=== PATIENT | male | born 1965 | race Caucasian/White ===

== ENCOUNTER 2021-03-27 10:54 | Emergency (ER) | payer OTHER, SELFPAY ==
[2021-03-27] VITALS (49 sets, daily range): BP systolic 91–131; BP diastolic 47–94; PULSE 64–113; RESP 5–24; TEMP 36; O2SAT 84–97
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
[2021-03-27] MEDS: Omnipaque 350 MG/ML 100 ML BTL IJ (11:12)
[2021-03-27] MEDS: Normal Saline Flush 10 ML SYR IVP (11:12)
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
[2021-03-27] MEDS: HYDROmorphone 2 MG/ML VIAL 1 MG IVP ×3 (11:20→15:57)
[2021-03-27 11:48] LABS: Absolute Basophil Count 0.05 10^3/uL (0.0-0.2); Absolute Eosinophil Count 0.14 10^3/uL (0.0-0.7); Absolute Lymphocyte Count 2.28 10^3/uL (1.2-3.4); Absolute Monocyte Count 0.88 10^3/uL (0.1-0.8); Absolute Neutrophil Count 11.68 10^3/uL (1.2-6.7); Basophils % 0.3; Eosinophils % 0.9; HCT 42.7 % (40.0-50.0); HGB 13.9 g/dL (13.5-17.5); Immature Grans % 1.3; MCH 29.4 pg (27.0-33.0); MCHC 32.6 % (32.0-36.0); MCV 90.3 fL (80-95); Monocytes % 5.8; Neutrophils % 76.7; Nucleated RBC 0 %; Platelet Count 249 10^3/uL (130-400); RBC 4.73 10^6/uL (4.36-5.78); RDW 13.1 % (11.8-14.1); RDW-SD 43.6 fL; WBC 15.23 10^3/uL (4.4-10.8)
[2021-03-27 12:02] LABS: ALT 65 U/L (16-63); AST 66 U/L (15-37); Albumin 3.5 g/dL (3.4-5.0); Alkaline Phosphatase 52 U/L (46-116); BUN 24 mg/dL (7-18); Bilirubin, Total 0.4 mg/dL (0.2-1.0); CREATININE 1.2 mg/dL (0.70-1.30); Calcium 8.3 mg/dL (8.5-10.1); Chloride 106 mmol/L (98-107); Glucose 125 mg/dL (74-106); Potassium 4.2 mmol/L (3.5-5.1); Sodium 142 mmol/L (136-145); Total Protein 6.7 g/dL (6.4-8.2)
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
[2021-03-27] MEDS: Lactated Ringers 1,000 ML 100 ML IV (14:30)
== END 2021-03-27 16:19 | disposition short-term general hospital (02) ==
PROVIDERS: Emergency Provider Emergency Medicine
DX: S82.291A Other fracture of shaft of right tibia, initial encounter for closed fracture (principal); S82.491A Other fracture of shaft of right fibula, initial encounter for closed fracture; S02.2XXA Fracture of nasal bones, initial encounter for closed fracture; S32.810A Multiple fractures of pelvis with stable disruption of pelvic ring, initial encounter for closed fracture; S32.19XA Other fracture of sacrum, initial encounter for closed fracture; V86.02XA Driver of snowmobile injured in traffic accident, initial encounter; R51.9 Headache, unspecified
CPT/HCPCS: 29515; 36415; 74177; 80053; 96361; 96374; 96376; 99285; 70450; 70486; 71260; 72125; 73590; 85025; J3490